=== PATIENT | male | born 1965 | race Hispanic/Latino ===

== ENCOUNTER 2017-04-25 06:37 | Emergency (ER) | payer OTHER ==
[~2017-04-25] VITALS: Ht 182.9 cm; Wt 113.4 kg
[2017-04-25 19:06] VITALS: BP 132/70
== END 2017-04-25 14:30 | disposition home or self-care (01) ==
LOC: FSED 09:37
DX: K62.5 Hemorrhage of anus and rectum (principal); K92.1 Melena; K64.8 Other hemorrhoids; K60.0 Acute anal fissure
CPT/HCPCS: 99283

== ENCOUNTER → 2017-05-18 | Day surgery (SDC) | payer OTHER ==
[2017-05-16 13:14] LABS: BASOPHILS # (AUTO) 0.1 (0.0-0.1); BASOPHILS % 0.8 % (0.0-1.0); EOSINOPHILS # (AUTO) 0.3 (0.0-0.4); EOSINOPHILS % 3.7 % (0.0-6.0); HEMATOCRIT 44.5 % (38.2-49.6); HEMOGLOBIN 15.7 g/dL (14.0-18.0); LYMPHOCYTES # (AUTO) 2.2 (1.0-3.2); LYMPHOCYTES % 27.9 % (18.0-39.1); MEAN CORPUSCULAR HEMOGLOBIN 30.3 pg (28-32); MEAN CORPUSCULAR HGB CONC 35.3 g/dL (31-35); MEAN CORPUSCULAR VOLUME 85.7 fL (81-99); MONOCYTES # (AUTO) 0.9 (0.2-0.8); MONOCYTES % 11.2 % (4.4-11.3); NEUTROPHILS # (AUTO) 4.4 (2.1-6.9); NEUTROPHILS % 56.1 % (38.7-80.0); PLATELET COUNT 244 x10e3/uL (140-360); RED BLOOD COUNT 5.19 x10e6/uL (4.3-5.7)
[~2017-05-18] MED LIST: ASPIR 8181 MG PO; CARVEDILOL3.125 MG PO; CLOPIDOGREL75 MG PO; FENTANYL CITRATE/PF 100MCG/2 ML INJ ONE; LIDOCAINE HCL 2% LOCAL INJ 5 ML SDV VIAL INJ ONE; MIDAZOLAM HCL 2 MG/2 ML VIAL ONE; PROPOFOL IV EMULSION 10 MG/ML 50 ML VIAL ONE; SIMVASTATIN20 MG PO
--- OUTSIDE RECORDS SUMMARY | 2017-05-18 10:56 | XMS REPORT | Continuity of Care Document ---
Author Author [facility] Organization [facility] Address [address] [place] [address] Phone Unavailable Care Team Providers Care Control Clerk Subassembly Name Role Phone NO, PCP PCP Unavailable Advance Directives Directive Response Recorded Date/Time Does the patient have an advance directive? No 04/25/17 9:34am Do you have a Directive to Physician? No 04/25/17 9:34am Do you have a Medical Power of Bucket Operator? No 04/25/17 9:34am Do you have an out of hospital Do Not Resuscitate Order? No 04/25/17 9:34am Do you have any special needs we should be aware of? No 04/25/17 9:34am Do you have a support person here with you today? No 04/25/17 9:34am Did patient receive Notice of Privacy Practices? Yes 04/25/17 9:34am Did patient receive patient rights and responsibilities? Yes 04/25/17 9:34am Problems No problem information available. Medications No medication information available. Social History Smoking Status Start Date Stop Date Current every day smoker Hospital Discharge Instructions No hospital discharge instruction information available. Plan of Care Discharge Date 04/25/17 2:30pm Disposition HOME, SELF-CARE Condition at Discharge Stable Instructions/Education Provided Constipation - Adult GI Bleeding Forms Provided Work/School Excuse Prescriptions See Medication Section Additional Instructions/Education Take Miralax - 1 capful in 8oz of water once daily, to try and prevent constipation. Increase fiber in the diet and increase water intake. It is VERY important that you follow-up with Gastronenterologist, for further evaluation of the source of GI bleeding. Functional Status No functional status information available. Allergies, Adverse Reactions, Alerts No allergy information available. Immunizations No immunization information available. Vital Signs Acute Vital Signs Vital Response Date/Time Temperature (Fahrenheit) 98.7 degrees F (97.6 - 99.5) 04/25/2017 7:06pm Pulse Pulse Rate (adult) 82 bpm (60 - 90) 04/25/2017 7:06pm Respiratory Rate 20 bpm (12 - 24) 04/25/2017 7:06pm Blood Pressure 132/70 mm Hg 04/25/2017 7:06pm Height 6 ft 0 in 04/25/2017 7:20am Weight 250 lb 04/25/2017 7:20am Body Mass Index 33.9 kg/m^2 04/25/2017 7:20am Results No relevant diagnostic test, laboratory data and/or discharge summary information available. Procedures No procedure information available. Encounters Encounter Location Arrival/Admit Date Discharge/Depart Date Attending Provider Departed Emergency Room [facility] 04/25/17 9:37am 2:30pm DEA ALMANZAR MD
--- NOTE | 2017-05-18 14:44 | Operative Report ---
DATE OF PROCEDURE: May 18, 2017 PROCEDURE PERFORMED: Colonoscopy and polypectomy. INDICATIONS FOR COLONOSCOPY: Colorectal cancer screening. MEDICATION: Patient was done under MAC. Please see anesthesiologist's note. PROCEDURE: With the patient in the left lateral decubitus position, the flexible fiberoptic Olympus colonoscope was inserted into the rectum with ease and advanced all the way to the cecum. The scope was then withdrawn slowly. Mucosa overlying the cecum, ascending, transverse, and descending appeared to be within normal limits. One polyp was hot biopsied from the sigmoid. One polyp was hot biopsied from the rectum. The scope was then retroflexed into the distal rectum and small internal hemorrhoids were noted, none of which was actively bleeding. The scope was then straightened out. It was subsequently withdrawn. Patient tolerated the procedure well. IMPRESSION 1. Sigmoid colon polyp, hot biopsied. 2. Rectal polyp, hot biopsied. 3. Internal hemorrhoids, none actively bleeding. PLAN: Follow up histology. Initiate high-fiber and low-fat diet. Initiate high-fiber supplement. Start hydrocortisone suppository 25 mg b.i.d. times 10 days and then p.r.n. Job#: [id number] NM
== END | disposition home or self-care (01) ==
LOC: OR 10:54
PROVIDERS: ATTEND Internal Medicine Gastroenterology
DX: Z12.11 Encounter for screening for malignant neoplasm of colon (principal); K63.5 Polyp of colon; K62.1 Rectal polyp; K64.8 Other hemorrhoids; K62.5 Hemorrhage of anus and rectum; I25.10 Atherosclerotic heart disease of native coronary artery without angina pectoris; I10 Essential (primary) hypertension; I25.2 Old myocardial infarction; F17.210 Nicotine dependence, cigarettes, uncomplicated; Z01.810 Encounter for preprocedural cardiovascular examination; Z01.812 Encounter for preprocedural laboratory examination; Z79.02 Long term (current) use of antithrombotics/antiplatelets; Z79.82 Long term (current) use of aspirin; Z68.36 Body mass index [BMI] 36.0-36.9, adult; Z95.5 Presence of coronary angioplasty implant and graft
CPT/HCPCS: 36415; 45384; 85025; 93005; J2250; J2001